=== PATIENT | male | born 1970 | race Caucasian/White ===

== ENCOUNTER → 2020-01-07 | Outpatient (CLI) | payer BC | LOC: SJCVCIMAG 11:27 | PROVIDERS: ATTEND Internal Medicine Cardiovascular Disease | DX: R55 Syncope and collapse (principal) ==

== ENCOUNTER → 2020-01-10 | Outpatient (CLI) | payer OTHER | LOC: CAT 11:08 | PROVIDERS: ATTEND Internal Medicine Cardiovascular Disease | DX: Z13.6 Encounter for screening for cardiovascular disorders (principal); I25.10 Atherosclerotic heart disease of native coronary artery without angina pectoris; E78.00 Pure hypercholesterolemia, unspecified ==

== ENCOUNTER → 2020-01-10 | Outpatient (CLI) | payer BC | LOC: SJCVCIMAG 01-07 12:01 | PROVIDERS: ATTEND Internal Medicine Cardiovascular Disease | DX: R55 Syncope and collapse (principal); R06.00 Dyspnea, unspecified; I10 Essential (primary) hypertension ==